=== PATIENT | male | born 1960 | race Caucasian/White ===

== ENCOUNTER 2023-07-23 21:19 | Emergency (ER) | payer BC ==
[2023-07-23 22:06] LABS: #Eosinphils 0.1 thou/uL (0.0-0.7); #Monocytes 0.5 thou/uL (0.11-0.59); %Basophils 0.5 % (0.0-1.0); %Eosinophils 0.8 % (0.0-10.0); %Lymphocytes 28.3 % (21.0-51.0); %Monocytes 7.5 % (0.0-10.0); %Neutrophils 62.4 % (42.0-75.0); Hematocrit 44.6 % (42.0-52.0); Hemoglobin 14.7 g/dL (14.0-18.0); Mean Corpuscular Hemoglobin 28.9 pg (27.0-31.0); Mean Corpuscular Volume 87.8 fl (78.0-98.0); Mean Platelet Volume 11.6 fL (7.4-10.4); Platelet Count 170 10x3/uL (130-400); RBC Distribution Width 14.1 % (11.5-14.5); Red Blood Cell (RBC) Count 5.08 mill/uL (4.70-6.10); White Blood Cell (WBC) Count 6.4 10x3/uL (4.8-10.8)
[2023-07-23 22:16] LABS: CRP (Inflammatory) 0.56 mg/dL (= or < 0.5); Lipase 66 U/L (8-78); Magnesium 1.8 mg/dL (1.6-2.6)
[2023-07-23 22:20] LABS: Troponin I Less than 0.010 ng/mL (< 0.028)
[2023-07-23 22:30] LABS: Albumin 4.2 g/dL (3.4-4.8)
[2023-07-23 22:32] LABS: Calcium 9.4 mg/dL (7.8-10.44); Chloride 106 mmol/L (98-107); Sodium 139 mmol/L (136-145)
[2023-07-23 22:33] LABS: Glucose 128 mg/dL (80-115)
[2023-07-23 22:35] LABS: Bilirubin, Total 0.3 mg/dL (0.2-1.2); Carbon Dioxide 18 mmol/L (23-31)
[2023-07-23 22:36] LABS: Alkaline Phosphatase 70 U/L (40-110); Calc. Creatinine Clearance 0 mL/min (70-130); Estimated GFR 77
[2023-07-23 22:37] LABS: BUN (Urea Nitrogen) 25 mg/dL (8.4-25.7)
[2023-07-23 22:38] LABS: AST (SGOT) 68 U/L (5-34)
[2023-07-23 22:39] LABS: ALT (SGPT) 48 U/L (8-55)
[2023-07-23 22:58] LABS: Globulin 2.3 g/dL (2.4-3.5); Protein, Total 6.5 g/dL (5.8-8.1)
[2023-07-23 23:12] LABS: Anion Gap 29 mmol/L (10-20)
== END 2023-07-23 23:00 | disposition home or self-care (01) ==
LOC: ERS 21:19
DX: T67.5XXA Heat exhaustion, unspecified, initial encounter (principal); E86.0 Dehydration; I10 Essential (primary) hypertension; E11.9 Type 2 diabetes mellitus without complications; F17.290 Nicotine dependence, other tobacco product, uncomplicated; Z79.84 Long term (current) use of oral hypoglycemic drugs
CPT/HCPCS: 70450; 71045; 80053; 83605; 83690; 83735; 84484; 85025; 86140; 93005; 96360